=== PATIENT | female | born 1940 | race Caucasian/White ===

== ENCOUNTER 2020-04-12 21:28 | Inpatient (IN) | payer MEDICARE, OTHER ==
[~2020-04-12] VITALS: Ht 152.4 cm; Wt 88.5 kg
--- NOTE | 2020-04-12 21:35 | NUR ---
PT CAME TO THE ER C/O GENERALIZED ABD PAIN W/ N/V X 1 DAY. PT AAOX4, RESPIRATIONS EVEN AND UNLABORED ON RA W/ NAD NOTED. PT CONNECTED TO THE MONITOR AND POX
[2020-04-12] MEDS ORDERED: METOCLOPRAMIDE HCL 10 MG/2 ML VIAL ONE (22:11)
[2020-04-12] MEDS ORDERED: diphenhydrAMINE HCL 50 MG/ML VIAL ONE (22:11)
[2020-04-12] MEDS ORDERED: MORPHINE SULFATE INJ 2 MG/ML DISP.SYRIN IV ONE (22:30)
[2020-04-12] MEDS ORDERED: METOCLOPRAMIDE HCL 10 MG/2 ML VIAL IV ONE (22:30)
[2020-04-12] MEDS ORDERED: diphenhydrAMINE HCL 50 MG/ML VIAL IV ONE (22:30)
--- NOTE | 2020-04-12 22:32 | NUR ---
PATIENT TAKEN TO CT.
[2020-04-12 22:33] LABS: BASOPHILS # (AUTO) 0.1 /CMM (0.0-0.2); BASOPHILS % (AUTO) 0.7 % (0.0-2.0); EOSINOPHILS % (AUTO) 0.1 % (0.0-6.0); HEMATOCRIT 41 % (33-45); HEMOGLOBIN 13.4 g/dL (11.5-14.8); LYMPHOCYTES % (AUTO) 7.8 % (20.0-44.0); MEAN CORPUSCULAR HGB CONC 32 g/dl (31.0-36.0); MEAN CORPUSCULAR VOLUME 92 fL (82-100); MONOCYTES # (AUTO) 0.4 /CMM (0.1-1.30); MONOCYTES % (AUTO) 3.5 % (2.0-12.0); NEUTROPHILS # (AUTO) 11.2 /CMM (1.8-8.9); NEUTROPHILS % (AUTO) 87.9 % (43.0-81.0); PLATELET COUNT (AUTO) 262 /CMM (150-450); RED BLOOD CELL COUNT(AUTO) 4.49 MIL/uL (4.0-5.2); WHITE BLOOD COUNT (AUTO) 12.8 K/uL (4.3-11.0)
--- NOTE | 2020-04-12 22:38 | NUR ---
PATIENT PROVIDED URINE, BUT ONLY A FEW DROPS. WILL TRY AGAIN LATER.
--- NOTE | 2020-04-12 22:38 | NUR ---
RETURN FROM CT
[2020-04-12 22:52] LABS: CALCIUM, SERUM 9.6 mg/dL (8.5-10.1); CARBON DIOXIDE 30 mmol/L (21-32); CHLORIDE 98 mmol/L (98-107); CREATININE 0.8 mg/dL (0.6-1.3); GLUCOSE 153 mg/dL (74-106); POTASSIUM 4.1 mmol/L (3.5-5.1); SODIUM SERUM 135 mmol/L (136-145); UREA NITROGEN, BLOOD 15 mg/dL (7-18)
--- NOTE | 2020-04-12 22:59 | NUR ---
COVID SWAB COLLECTED AND SENT TO THE LAB.
[2020-04-12] MEDS ORDERED: MORPHINE SULFATE INJ 2 MG/ML DISP.SYRIN ONE (23:00)
[2020-04-12] MEDS ORDERED: MORPHINE SULFATE INJ 4 MG/ML DISP.SYRIN ONE (23:00)
[2020-04-12 23:09] LABS: ALANINE AMINOTRANSFERASE 18 U/L (12-78); ALBUMIN 3.9 g/dL (3.4-5.0); ALKALINE PHOSPHATASE 75 U/L (46-116); ASPARTATE AMINOTRANSFERASE 23 U/L (15-37); BILIRUBIN,DIRECT 0.1 mg/dL (0.0-0.2); BILIRUBIN,TOTAL 0.2 mg/dL (0.2-1.0); LIPASE 47 U/L (73-393); TOTAL PROTEIN, SERUM 8.2 g/dL (6.4-8.2)
[2020-04-12] MEDS ORDERED: PIPERACILLIN /TAZOBACTAM 3.375 G in IV D5W 50 ML IV ONE (23:30)
[2020-04-13] MEDS ORDERED: PIPERACILLIN /TAZOBACTAM 3.375 G VIAL IV ONE (00:03)
--- NOTE | 2020-04-13 00:08 | NUR ---
DR. LAW SPEAKING WITH IVANA GONZALEZ NP REGARDING ADMISSION
--- NOTE | 2020-04-13 00:10 | NUR ---
urine collected and sent to the lab.
--- NOTE | 2020-04-13 00:10 | NUR ---
us at bedside.
[2020-04-13 00:16] LABS: APPEARANCE,URINE CLEAR (CLEAR); BILIRUBIN,URINE NEGATIVE (NEGATIVE); BLOOD, URINE MODERATE Ery/uL (NEGATIVE); COLOR,URINE YELLOW (YELLOW); KETONES,URINE NEGATIVE (NEGATIVE); LEUKOCYTE ESTERASE ,URINE NEGATIVE (NEGATIVE); NITRITE, URINE NEGATIVE (NEGATIVE); PROTEIN,URINE 30 mg/dl (NEGATIVE); UGLUCOSE NEGATIVE (NEGATIVE); UROBILINOGEN,URINE 0.2 EU/dL (0.2)
[2020-04-13 00:22] LABS: BACTERIA,URINE None seen /HPF (None Seen); SQUAMOUS EPITHELIAL CELL,UR Few /HPF (None Seen); WBC,URINE 0-2 /HPF (0-3)
[2020-04-13] MEDS ORDERED: ZOLPIDEM TARTRATE 5 MG TABLET PO PRN (00:30)
[2020-04-13] MEDS ORDERED: ACETAMINOPHEN 325 MG TABLET PO PRN (00:30)
[2020-04-13] MEDS ORDERED: MAGNESIUM HYDROXIDE 30 ML UDC PO PRN (00:30)
[2020-04-13] MEDS ORDERED: MORPHINE SULFATE INJ 2 MG/ML DISP.SYRIN IV PRN (00:30)
[2020-04-13] MEDS ORDERED: Z GUARD REMEDY 2 OZ OINT TP PRN (00:30)
[2020-04-13] MEDS ORDERED: ONDANSETRON HCL/PF 4 MG/2 ML VIAL IVP PRN (00:30)
[2020-04-13] MEDS ORDERED: MAG HYDROX/AL HYDROX/SIMETH 30 ML UDC PO PRN (00:30)
[2020-04-13] MEDS ORDERED: METOCLOPRAMIDE HCL 15 MG in IV NS 0.9% 50 ML IV PRN ×2 (00:30→06:00)
--- NOTE | 2020-04-13 00:48 | NUR ---
REC'D NEG COVID RESULTS. AND OLE MILTON MADE AWARE
--- NOTE | 2020-04-13 01:06 | NUR ---
BED ASSIGNMENT 324-1
[2020-04-13] MEDS ORDERED: hydrALAZINE HCL IV 20 MG VIAL ONE (01:09)
--- NOTE | 2020-04-13 01:14 | NUR ---
patient's blood pressure is 181/[address] grimaldo to give 10mg of hydralazine iv
--- NOTE | 2020-04-13 01:22 | NUR ---
PATIENT TAKEN TO ASSIGNED ROOM.
[2020-04-13] MEDS ORDERED: hydrALAZINE HCL IV 20 MG VIAL IV ONE (01:30)
[2020-04-13 01:35] VITALS: BP 131/56
--- NOTE | 2020-04-13 01:35 | NUR ---
MS RN NOTES PATIENT ARRIVED ON FLOOR AT 0135. PT IS AMBULATED TO BED, ALERT AND ORIENTED X 4. BREATHING EVEN AND UNLABORED ON 5L NC. SHOWS NO SIGNS OF ACUTE RESPIRATORY DISTRESS, NO ACUTE PAIN. IV ON RAC 20G ITS CLEAN DRY AND INTACT. SHOWS NO SIGNS OF INFILTRATION, NO REDNESS. BELONGINGS CHECKLIST COMPLETED. PT REFUSED SKIN ASSESSMENT. ORIENTED TO ROOM AND STAFF. SAFETY PRECAUTIONS IN PLACE. BED IN LOWEST POSITION, LOCKED, AND CALL LIGHT KEPT WITHIN REACH. WILL CONTINUE TO MONITOR.
[2020-04-13] MEDS: IV NS 0.9% 1,000 ML IV PRN ×2 (03:18→16:03)
[2020-04-13] MEDS ORDERED: PIPERACILLIN /TAZOBACTAM 3.375 G in IV D5W 50 ML IV SCH (06:00)
--- NOTE | 2020-04-13 07:16 | NUR ---
MS RN NOTES PATIENT IS IN BED, ASLEEP, ALERT AND ORIENTED X 4. BREATHING EVEN AND UNLABORED ON 5L NC. SHOWS NO SIGNS OF ACUTE RESPIRATORY DISTRESS, NO ACUTE PAIN. IV ON RAC 20G RUNNING NS AT 100ML/HR. ITS CLEAN DRY AND INTACT. SHOWS NO SIGNS OF INFILTRATION, NO REDNESS. DVT PUMPS ON. ALL DUE MEDICATIONS GIVEN. ALL NEEDS ATTENDED TO. SAFETY PRECAUTIONS IN PLACE. BED IN LOWEST POSITION, LOCKED, AND CALL LIGHT KEPT WITHIN REACH. WILL ENDORSE TO ONCOMING NURSE
--- NOTE | 2020-04-13 07:35 | NUR ---
MS RN NOTES PATIENT RECEIVED IN BED SLEEPING. ALERT AND ORIENTED X 4. PATIENT ON NASAL CANNULA, TITRATED TO OXYGEN TO 3LITERS AND INFORMED PATIENT TO TAKE DEEP SLOW BREATHS. PATIENT SEEN AND EXAMINED BY DR. MCKEON. PATIENT IV ACCESS INTACT AND PATENT INFUSING NORMAL SALINE AT 100ml/hr. SAFETY PRECAUTIONS IMPLEMENTED WITH BED LOCKED, BED IN THE LOWEST POSITION, BILATERAL SIDE RAILS UP, BED LOCKED, AND CALL LIGHT WITHIN EASY REACH. WILL CONTINUE TO MONITOR PATIENT.
[2020-04-13 08:00] VITALS: BP 161/76
[2020-04-13] MEDS: PIPERACILLIN /TAZOBACTAM 3.375 G in IV D5W 100 ML IV SCH ×3 (08:37→23:37)
[2020-04-13] MEDS: PANTOPRAZOLE 40 MG VIAL IV SCH (08:37)
[2020-04-13] MEDS ORDERED: MYRBETRIQ PO (09:11)
[2020-04-13] MEDS ORDERED: OLME20TA23 PO (09:11)
[2020-04-13] MEDS ORDERED: CLOP75TA15 PO (09:11)
[2020-04-13] MEDS ORDERED: ATOR10TA PO (09:11)
[2020-04-13] MEDS ORDERED: ESCI10TA PO (09:11)
[2020-04-13] MEDS ORDERED: FESO4TAB PO (09:11)
[2020-04-13] MEDS ORDERED: GABA300C PO (09:11)
[2020-04-13] MEDS ORDERED: AMLO5TAB9 PO (09:11)
[2020-04-13] MEDS: CLOPIDOGREL BISULFATE 75 MG TABLET PO SCH (10:04)
[2020-04-13] MEDS: ASPIRIN 81 MG TAB.CHEW PO SCH (10:04)
[2020-04-13] MEDS: ENOXAPARIN SODIUM 40 MG/0.4 ML DISP.SYRIN SQ SCH (10:05)
--- NOTE | 2020-04-13 10:10 | NUR ---
MS RN NOTES PATIENT LEFT UNIT FOR MRCP.
[2020-04-13 12:00] VITALS: BP 122/63
[2020-04-13 15:57] VITALS: BP 129/55
[2020-04-13 16:00] VITALS: BP 129/55
--- NOTE | 2020-04-13 18:05 | NUR ---
MS RN NOTES PATIENT IN BED RESTING COMFORTABLY. ALERT AND ORIENTED X 4, UNDERSTANDS SERBIAN BUT MAINLY FARSI SPEAKING. PATIENT ON NASAL CANNULA, 2 LITERS AND INFORMED PATIENT TO TAKE DEEP SLOW BREATHS WHEN HAVING PAIN. NO RESPIRATORY DISTRESS AT THIS TIME, WITH EVEN NON-LABORED BREATHING, AND NO SOB NOTED. IV ACCESS INTACT AND PATENT INFUSING NORMAL SALINE AT 100ml/hr. PATIENT SKIN KEPT CLEAN, WARM AND DRY, NO OPEN WOUNDS PRESENT. SAFETY PRECAUTIONS IMPLEMENTED WITH BED LOCKED, BED IN THE LOWEST POSITION, BILATERAL SIDE RAILS UP, BED LOCKED, AND CALL LIGHT WITHIN EASY REACH. WILL ENDORSE PLAN OF CARE TO UPCOMING NURSE.
[2020-04-13 18:56] LABS: ALBUMIN 2.8 g/dL (3.4-5.0); BILIRUBIN,DIRECT 0.1 mg/dL (0.0-0.2); BILIRUBIN,TOTAL 0.5 mg/dL (0.2-1.0)
--- NOTE | 2020-04-13 19:50 | NUR ---
MS RN NOTES PATIENT IS IN BED, ASLEEP, ALERT AND ORIENTED X 4. BREATHING EVEN AND UNLABORED ON 2L NC. SHOWS NO SIGNS OF ACUTE RESPIRATORY DISTRESS, NO ACUTE PAIN. IV ON RAC 20G RUNNING NS AT 100ML/HR. ITS CLEAN DRY AND INTACT. SHOWS NO SIGNS OF INFILTRATION, NO REDNESS. DVT PUMPS ON. SAFETY PRECAUTIONS IN PLACE. BED IN LOWEST POSITION, LOCKED, AND CALL LIGHT KEPT WITHIN REACH. WILL CONTINUE TO MONITOR.
[2020-04-13 20:00] VITALS: BP 135/66
--- NOTE | 2020-04-13 20:15 | NUR ---
MS RN NOTES PATIENT FAMILY MEMBER BROUGHT SMALL CELLPHONE AND ANOTHER SMARTPHONE IN A BLACK CASE WITH GLASSES. LEFT AT BEDSIDE. WILL CONTINUE TO MONITOR.
--- NOTE | 2020-04-13 20:33 | NUR ---
MS RN NOTES PATIENT COMPLAINING OF PAIN IN ABD 02/13. GIVEN PRN MORPHINE AT 2032. VITAL SIGNS WNL. WILL CONTINUE TO MONITOR.
[2020-04-14] MEDS: IV NS 0.9% 1,000 ML IV PRN (05:55)
--- NOTE | 2020-04-14 06:38 | NUR ---
MS RN NOTES PATIENT IS IN BED, ASLEEP, ALERT AND ORIENTED X 4. BREATHING EVEN AND UNLABORED ON 2L NC. SHOWS NO SIGNS OF ACUTE RESPIRATORY DISTRESS, NO ACUTE PAIN. IV ON RAC 20G RUNNING NS AT 100ML/HR. ITS CLEAN DRY AND INTACT. SHOWS NO SIGNS OF INFILTRATION, NO REDNESS. DVT PUMPS ON. SAFETY PRECAUTIONS IN PLACE. ALL NEEDS ATTENDED TO. ALL DUE MEDICATIONS GIVEN. SAFETY PRECAUTIONS IN PLACE. BED IN LOWEST POSITION, LOCKED, AND CALL LIGHT KEPT WITHIN REACH. WILL ENDORSE TO ONCOMING NURSE.
--- NOTE | 2020-04-14 07:25 | NUR ---
MS RN NOTES PATIENT IN BED ALERT ORIENTED X 4. NO ACUTE DISTRESS NOTED. BREATHING UNLABORED. NO SOB NOTED. IV ACCESS PATENT AND INTACT, NO REDNESS, NO SWELLING NOTED. SAFETY MEASURES IN PLACE. CALL LIGHT WITHIN REACH. WILL CONTINUE TO MONITOR ACCORDINGLY.
[2020-04-14 07:47] LABS: BASOPHILS # (AUTO) 0.1 /CMM (0.0-0.2); BASOPHILS % (AUTO) 0.5 % (0.0-2.0); HEMATOCRIT 38 % (33-45); HEMOGLOBIN 12.2 g/dL (11.5-14.8); LYMPHOCYTES # (AUTO) 1.5 /CMM (0.8-4.8); LYMPHOCYTES % (AUTO) 6.4 % (20.0-44.0); MEAN CORPUSCULAR HGB CONC 32 g/dl (31.0-36.0); MEAN CORPUSCULAR VOLUME 92 fL (82-100); MONOCYTES # (AUTO) 1.6 /CMM (0.1-1.30); MONOCYTES % (AUTO) 6.7 % (2.0-12.0); NEUTROPHILS % (AUTO) 86.4 % (43.0-81.0); PLATELET COUNT (AUTO) 221 /CMM (150-450); RED BLOOD CELL COUNT(AUTO) 4.15 MIL/uL (4.0-5.2); WHITE BLOOD COUNT (AUTO) 23.2 K/uL (4.3-11.0)
[2020-04-14 08:00] VITALS: BP 127/59
[2020-04-14] MEDS: PIPERACILLIN /TAZOBACTAM 3.375 G in IV D5W 100 ML IV SCH (08:04)
[2020-04-14 08:10] LABS: ALBUMIN 2.5 g/dL (3.4-5.0); BILIRUBIN,TOTAL 0.5 mg/dL (0.2-1.0); CREATININE 0.8 mg/dL (0.6-1.3); MAGNESIUM 2.2 mg/dL (1.8-2.4); PHOSPHORUS 2.6 mg/dL (2.5-4.9); POTASSIUM 3.6 mmol/L (3.5-5.1); TOTAL PROTEIN, SERUM 6.4 g/dL (6.4-8.2)
--- NOTE | 2020-04-14 08:40 | NUR ---
MS RN NOTES PATIENT VERBALIZED SHE WANTS TO GO HOME, EXPLAINED RISKS AND BENEFITS OF GOING HOME AGAINST MEDICAL ADVICE, PATIENT VERBALIZED UNDERSTANDING AND SIGNED AMA FORM.
[2020-04-14] MEDS: ASPIRIN 81 MG TAB.CHEW PO SCH (09:00)
[2020-04-14] MEDS: CLOPIDOGREL BISULFATE 75 MG TABLET PO SCH (09:00)
[2020-04-14] MEDS: PANTOPRAZOLE 40 MG VIAL IV SCH (09:00)
[2020-04-14] MEDS: ENOXAPARIN SODIUM 40 MG/0.4 ML DISP.SYRIN SQ SCH (09:00)
--- NOTE | 2020-04-14 09:00 | NUR ---
MS RN NOTES PATIENT REFUSED MEDICATIONS DESPITE OF EXPLANATION OF RISKS AND BENEFITS.
--- NOTE | 2020-04-14 09:10 | NUR ---
MS RN NOTES PATIENT DISCHARGE HOME AGAINST MEDICAL ADVICE WITH STABLE VITAL SIGNS. NO ACUTE DISTRESS NOTED. BREATHING UNLABORED. NO COMPLAINT OF PAIN. ALL BELONGINGS ACCOUNTED FOR. IV ACCESS REMOVED, NO REDNESS, NO SWELLING, NO BLEEDING NOTED. ASSISTED TO THE LOBBY, PICKED UP BY SON VIA PRIVATE CAR IN STABLE CONDITION.
== END 2020-04-14 09:05 | disposition left against medical advice (07) | DRG 446 ==
LOC: ER 21:28 → MED 04-13 01:11
PROVIDERS: ADMIT Family Medicine; ATTEND Family Medicine
DX: K80.00 Calculus of gallbladder with acute cholecystitis without obstruction (principal); D72.829 Elevated white blood cell count, unspecified; E78.5 Hyperlipidemia, unspecified; R73.9 Hyperglycemia, unspecified; F32.9 Major depressive disorder, single episode, unspecified; I10 Essential (primary) hypertension; E66.9 Obesity, unspecified; Z68.38 Body mass index [BMI] 38.0-38.9, adult; I25.10 Atherosclerotic heart disease of native coronary artery without angina pectoris; K44.9 Diaphragmatic hernia without obstruction or gangrene; K57.90 Diverticulosis of intestine, part unspecified, without perforation or abscess without bleeding
CPT/HCPCS: 36415; 71045-TC; 74181-TC; 76705-TC; 80048-TC; 80053-TC; 80061-TC; 80076-TC; 81000-TC; 82247-TC; 82248-TC; 83690-TC; 83735-TC; 84100-TC; 84484-TC; 85025-TC; 85730-TC; 87081-TC; 93307-TC; C9113; C9803; G0378; J0360; J1200; J1650; J2270; J2543; J2765; J7030; J7060; U0003